=== PATIENT | female | born 1980 | race Caucasian/White ===

== ENCOUNTER 2024-01-28 20:55 | Emergency (ER) | payer OTHER, SELFPAY ==
[2024-01-28 20:56] VITALS: BP 127/81
[2024-01-28 22:13] VITALS: BMI 30.7
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
== END 2024-01-28 22:51 | disposition home or self-care (01) ==
LOC: EMR 20:55
PROVIDERS: EMERGENCY PHYSICIAN Emergency Medicine
DX: R42 Dizziness and giddiness (principal); R51.9 Headache, unspecified; R20.0 Anesthesia of skin; R20.2 Paresthesia of skin; V89.2XXA Person injured in unspecified motor-vehicle accident, traffic, initial encounter
CPT/HCPCS: 99284; 70450; 72125

== ENCOUNTER 2024-06-05 13:43 | Emergency (ER) | payer BC, SELFPAY ==
[2024-06-05 13:47] VITALS: BP 117/74
[2024-06-05 14:09] LABS: % Basophils 0.4 % (0-2); % Eosinophils 0.5 % (0-6); % Immature Granulocytes 0.3 % (0-0.5); % Lymphocytes 9.2 % (20.5-51.1); % Monocytes 3.9 % (1.7-9.3); % Neutrophils 85.7 % (42.2-75.2); Absolute Eosinophils 0.1 10^3/uL (0-0.7); Absolute Monocytes 0.4 10^3/uL (0.1-0.6); Absolute Neutrophils 9.4 10^3/uL (1.4-6.5); Hemoglobin 13.4 g/dL (12.0-16.0); Mean Corp Hgb Conc. 33.5 g/dL (33.0-37.0); Mean Corpuscular Hgb 31.4 pg (27.0-31.0); Mean Corpuscular Volume 93.7 fL (81.0-99.0); Mean Platelet Volume 10.9 fL (7.4-10.4); Nucleated Red Blood Cells % 0 %; Platelet Count 246 10^3/uL (130-400); Red Blood Cell Count 4.27 10^6/uL (4.20-5.40); Red Cell Dist. Width 12.5 % (11.5-14.5); White Blood Cell Count 10.9 10^3/uL (4.8-10.8)
[2024-06-05 14:26] LABS: COVID-19 Antigen Negative (Negative)
[2024-06-05 14:38] LABS: ALT (SGPT) 10 U/L (0-35); AST (SGOT) 19 U/L (14-36); Albumin 4.7 g/dl (3.5-5.0); Alkaline Phosphatase 63 U/L (38-126); Blood Urea Nitrogen 9 mg/dl (7-17); Calcium 9.2 mg/dl (8.4-10.2); Carbon Dioxide 26 mmol/L (22-30); Chloride 105 mmol/L (98-107); Glucose 120 mg/dl (70-99); Potassium 4.1 mmol/L (3.5-5.1); Sodium 140 mmol/L (135-145); Total Bilirubin 0.6 mg/dl (0.2-1.3); Total Protein 7.6 g/dl (6.3-8.2); eGFR > 60.00
[2024-06-05 14:40] LABS: Lactic Acid 1.1 mmol/L (0.7-2.0)
[2024-06-05] MEDS: NSS 1000 IV (15:36)
[2024-06-05] MEDS: TORADOL 15 MG IV (15:37)
--- NOTE | 2024-06-05 15:53 | ED.GENMED ---
History of Present Illness
General
Chief Complaint: Fever
Source: patient
Exam Limitations: none
Time Seen by Provider: 06/05/24 15:05
Nursing documentation reviewed up to this point in time: agreed with
History of Present Illness
History of Present Illness:
Patient is a 44-year-old female presenting with approximately 3 days of intermittent fevers, body aches, headache. Temp up to 101F on Thursday although she has remained afebrile today. She also reports noticing a swollen gland on her posterior scalp
which is painful. She has had intermittent headache and states her entire body hurts. She notes a mild dry cough, as well. She did have 1 episode of vomiting this morning. Patient denies any abdominal pain, sore throat, chest pain, or shortness
of breath. No rash. Patient denies any known tick bites or other bug bites. Patient is been taking Motrin/Tylenol at home with minimal improvement. 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
Past History
Past History
ED Past Medical History: Psychiatric (Anxiety); Negative Asthma, HTN, Hypercholesterolemia or NIDDM
ED Past Surgical History: None
Social History
Tobacco: Non-smoker
Alcohol: None
Personal: Single
Living: with family
Employment: Employed
Review of Systems
Review of Systems
Allergies reviewed?: Yes
All Other Systems: ROS reviewed and negative except as documented in HPI and ROS
Phy Exam
Physical Exam
Physical Exam:
Vitals: Patient's vital signs are stable. Afebrile
General: Patient is well appearing, no acute distress. Nontoxic appearing
Skin: Warm and dry, no rashes or lesions
Head: Normocephalic, atraumatic
Eyes: Sclera nonicteric. EOMs intact. No nystagmus.
Throat: Mild pharyngeal erythema. No tonsillar edema or exudates. Uvula midline. Protecting airway
Neck: Palpable tender posterior cervical lymphadenopathy bilaterally. Normal ROM, no cervical spine tenderness, no meningismus
Cardiac: Regular rate and rhythm, no murmurs.
Pulm: Normal respiratory effort, no wheezes, rales, rhonchi heard on exam.
Abdomen: Abdomen soft. No abdominal tenderness. No palpable hepatosplenomegaly.
Extremities: No evidence of cyanosis or edema. Palpable DP pulses bilaterally
Neuro: AAOx3. Grossly intact.
Psychiatric: Normal affect.
Course
Orders/Labs/Results
Orders:
Orders
06/05/24 13:49
CR Chest - 2 Views Urgent
Comment:
Reason For Exam: cough
06/05/24 13:59
COVID-19 Antigen Urgent
Source: Nasal Swab
Complete Blood Count/With Diff Urgent
Comprehensive Metabolic Panel Urgent
Lactic Acid Urgent
Monotest Urgent
Comment: ADD ON
Influenza A+B Rapid Molecular Urgent
CUCA Source: Nasal Swab
Specimen Description:
06/05/24 15:21
Add On- LAB Urgent
Tests Added?: monospot
0.9% Sodium Chloride 1000 ml [Nss] 1,000 ml IV BOLUS
Ketorolac [Toradol] 15 mg IV NOW STA
Abnormal Lab Results
06/05/24
13:59
WBC 10.9 H 10^3/uL
(4.8-10.8)
MCH 31.4 H pg
(27.0-31.0)
MPV 10.9 H fL
(7.4-10.4)
Absolute Neuts (auto) 9.4 H 10^3/uL
(1.4-6.5)
Absolute Lymphs (auto) 1.0 L 10^3/uL
(1.2-3.4)
Neutrophils % 85.7 H %
(42.2-75.2)
Lymphocytes % 9.2 L %
(20.5-51.1)
Glucose 120 H mg/dl
(70-99)
Monoscreen Positive A
(Negative)
06/05/24 13:59
06/05/24 13:59
Vital Signs
Initial and Last Documented VS:
Initial Vital Signs
Temp Pulse Resp BP Pulse Ox
98.7 F 72 20 117/74 99
06/05/24 13:47 06/05/24 13:47 06/05/24 13:47 06/05/24 13:47 06/05/24 13:47
Last Documented Vital Signs
Temp Pulse Resp BP Pulse Ox
98.9 F 87 17 124/74 98
06/05/24 18:16 06/05/24 18:16 06/05/24 18:16 06/05/24 18:16 06/05/24 18:16
MDM/Problems Addressed
Differential Diagnosis Includes:
Not limited to: Viral illness including COVID, influenza, mononucleosis, bronchitis, migraine headache, dehydration,
MDM/Problems Addressed:
44-year-old female presenting with 4 days of intermittent fever, body aches, and headache. Also notes swollen lymph nodes in posterior neck. No abdominal pain, rash productive cough. Patient arrives with stable vital signs. She is afebrile.
Physical exam as above. Patient in no apparent distress. No peritonsillar abscess or evidence of bacterial pharyngitis. There are a few palpable lymph nodes in posterior cervical chain bilaterally. Abdomen soft and nontender.
Cardio/pulmonary/unremarkable. Prior to my assessment basic labs and viral swabs are obtained without any clinically significant abnormalities. Both COVID and influenza testing negative. Chest x-ray also obtained which shows no evidence of
pneumonia or acute abnormalities. Ultimately�suspect viral etiology. Will add on monotest. Will treat migraine with Toradol, IV fluids and reassess.
Update: Monotest positive. This would explain patient's symptoms. Patient reports improvement in headache following Toradol and has completed liter of IV fluids in the emergency department. Patient otherwise hemodynamically stable and
well-appearing. Feel patient is stable for discharge home with supportive care. No indication for steroids at this time. Discussed mono at length including viral illness, expectations, etc. Patient will follow with primary care as needed.
Advised stay well-hydrated get plenty of rest, NSAIDs as needed. Return precautions discussed. Case discussed with attending physician.
Chronic conditions affecting care:
N/A
Acute Exacerbation and/or Progression of Chronic Illness:
N/A
*Radiology
Radiology exam reviewed: preliminary read by ED provider (Chest x-ray reviewed by me-no acute abnormalities) and radiology read reviewed
*Pulse Oximetry
Patient hypoxic: no
*EKG
Interpreted by ED Provider?: NA
*Medical Receptionist Interpretation
Rate: Medical Receptionist- N/A
*Critical Care Note
Total Time (30-74mins, 75-104mins- exclusive of procedures): Not Applicable
ED Attending Note
-
Portions of this chart may have been created with voice recognition software.� Occasional wrong word or��sound alike� substitutions may have occurred due to the inherent limitations of voice recognition software.
Discharge Plan
Departure
Patient Disposition: Home (Routine Discharge)
Date of Disposition: 06/05/24
Time of Disposition: 17:47
Patient with high blood pressure during this ER visit?: No
Condition: Good
Covid-19: Negative COVID-19
Discharge Problem:
Mononucleosis
Instructions: Mononucleosis
Prescriptions:
No Action
ondansetron 4 MG tablet,disintegrating
4 mg PO Q8HPRN PRN (Reason: nausea/Vomiting) Qty: 10 0RF
Referrals:
NONE,* [Family Provider] -
Activity Restrictions/Additional Instructions:
Return to the emergency department with any severe headache, chest pain/shortness of breath, persistently high fevers, sore throat with any difficulty breathing, severe abdominal pain, any abdominal trauma, or any other concerns
-As discussed that your monotest was positive on the emergency department. This is a viral illness which should improve over time. It is very important you stay well-hydrated and get plenty of rest. Continue to take Motrin as needed for fever,
headache, body aches.
-You should avoid contact sports for the next few months until symptoms completely improved.
-Follow-up with primary care for further evaluation/management as needed
Monitor your symptoms closely return to the emergency department any acute worsening/new symptoms or any other concerns
Interventions
Interventions:
*Risk Screen - Suicide Last Done: 06/05/24 15:45
*General Assessment Last Done: 06/05/24 13:47
*Neglect/Abuse Screening Last Done: 06/05/24 15:45
ED- Fall Risk Assessment Last Done: 06/05/24 18:16
*ED COVID-19 Vaccine History Last Done: 06/05/24 15:45
*Nursing Disposition Last Done: 06/05/24 18:16
ED- Neurological Assessment Last Done: 06/05/24 15:45
ED-Skin Assessment Last Done: 06/05/24 15:45
Discharge Date and Time
Discharge Date/Time: 06/05/24 18:16
Print Language: GUINEAN
[2024-06-05 16:44] LABS: Monotest Positive (Negative)
[2024-06-05 18:16] VITALS: BP 124/74
== END 2024-06-05 18:16 | disposition home or self-care (01) ==
LOC: EMR 13:43
PROVIDERS: Emergency Medicine; EMERGENCY PHYSICIAN Student in an Organized Health Care Education/Training Program
DX: B27.90 Infectious mononucleosis, unspecified without complication (principal)
CPT/HCPCS: 96374; 96361; 99284; 71046; 80053; 83605; 85025; 86308; 87502; 87811